=== PATIENT | male | born 1970 | race Caucasian/White ===

== ENCOUNTER 2021-03-19 10:30 | Emergency (ER) | payer OTHER ==
[~2021-03-19] VITALS: Ht 177.8 cm; Wt 99.8 kg
[2021-03-19] MEDS ORDERED: SEROQUEL 100 M100 MG PO (10:41)
[2021-03-19] MEDS ORDERED: XANAX 0.5 MG0.5 M1 PO (10:42)
[2021-03-19 11:25] LABS: ABSOLUTE LYMPHOCYTES 0.5 thou/uL (0.8-5.3); ABSOLUTE MONOCYTES 0.2 thou/uL (0.0-1.2); ABSOLUTE NEUTROPHILS 2.3 thou/uL (1.6-8.1); BASOPHILS 0.3 %; EOSINOPHILS 1.5 %; HEMATOCRIT 41.4 % (42.0-52.0); LYMPHOCYTES 15.8 %; MCH 28.6 pg (26.0-34.0); MCHC 33.8 g/dL (28.0-37.0); MCV 84.7 fL (80.0-100.0); MONOCYTES 6.8 %; MPV 8.5 fl. (7.2-11.1); NUCLEATED RBCS 0 /100WBC; PLATELET COUNT* 118 thou/uL (150-400); POLYS 75.6 %; RBC 4.89 mil/uL (4.50-6.00); RDW-CV 13.8 % (10.5-14.5); WBC 3.1 thou/uL (4.0-11.0)
[2021-03-19 11:27] LABS: CALCIUM 8.4 mg/dL (8.5-10.1); CREATININE 1.2 mg/dL (0.6-1.3); POTASSIUM 3.6 mmol/L (3.5-5.1)
[2021-03-19 11:32] LABS: ALBUMIN 3.4 g/dL (3.4-5.0); TOTAL BILIRUBIN 0.4 mg/dL (<0.1-1.0); TOTAL PROTEIN 7.1 g/dL (6.4-8.2)
[2021-03-19] MEDS ORDERED: ZOFRAN ODT4 MG PO (13:15)
[2021-03-19] MEDS ORDERED: TRANSDERM-SCOP1 EACH TRANSDERM (13:15)
[2021-03-19 14:52] VITALS: BP 130/88
--- NOTE | 2021-03-19 15:03 | EKG ---
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: [facility] : 1970 Requested By: Mariana Centeno Order Number: [id number] MD: Sherif Moore Measurements Intervals [place] Rate: 75 P: 29 WY: 152 QRS: 27 QRSD: 93 T: 63 QT: 419 QTc: 468 Interpretive Statements Sinus rhythm Low voltage, precordial leads Baseline wander in lead(s) V1,V2,V3 No previous ECG available for comparison Electronically Signed On 03-19-2021 15:03:29 PHYSICAL SCIENCE PROFESSOR by Sherif Moore [email or web address] <ELECTRONICALLY SIGNED> By: Sherif Moore MD, [facility] 03/19/21 1503 1044 1044 Sherif Moore MD, [facility] /EPI
== END 2021-03-19 14:54 | disposition home or self-care (01) ==
LOC: M.ERS 10:30
PROVIDERS: Nurse Practitioner Family
DX: H81.10 Benign paroxysmal vertigo, unspecified ear (principal); Z20.822 Contact with and (suspected) exposure to COVID-19; J45.909 Unspecified asthma, uncomplicated; Z79.899 Other long term (current) drug therapy